=== PATIENT | male | born 1950 | race African-American/Black ===

== ENCOUNTER 2019-05-31 18:06 | Emergency (ER) | payer MEDICARE, MEDICAID ==
[~2019-05-31] VITALS: Ht 185.4 cm; Wt 82.0 kg
[2019-05-31 19:35] VITALS: BP 124/84
== END 2019-05-31 21:45 | disposition home or self-care (01) ==
LOC: ER 18:06
DX: F14.10 Cocaine abuse, uncomplicated (principal); F10.10 Alcohol abuse, uncomplicated; J45.909 Unspecified asthma, uncomplicated; I10 Essential (primary) hypertension; Z86.73 Personal history of transient ischemic attack (TIA), and cerebral infarction without residual deficits; Z85.9 Personal history of malignant neoplasm, unspecified; Y90.9 Presence of alcohol in blood, level not specified
CPT/HCPCS: 99283